=== PATIENT | female | born 1975 | race Two or more races ===

== ENCOUNTER 2016-12-26 16:35 | Emergency (ER) | payer MEDICAID ==
[~2016-12-26] VITALS: Ht 167.6 cm; Wt 72.5 kg
[~2016-12-26 16:35] MED LIST: NOCURR
[2016-12-26 17:06] VITALS: BP 131/65
== END 2016-12-26 20:40 | disposition left against medical advice (07) ==
LOC: EMS 16:36
DX: R07.81 Pleurodynia (principal); J45.909 Unspecified asthma, uncomplicated; Z53.21 Procedure and treatment not carried out due to patient leaving prior to being seen by health care provider

== ENCOUNTER 2018-03-25 00:38 | Emergency (ER) | payer MEDICAID ==
[~2018-03-25] VITALS: Ht 167.6 cm; Wt 72.6 kg
[2018-03-25 00:53] VITALS: BP 141/95
== END 2018-03-25 03:40 | disposition home or self-care (01) ==
LOC: EMS 00:38
DX: S93.401A Sprain of unspecified ligament of right ankle, initial encounter (principal); I10 Essential (primary) hypertension; J45.909 Unspecified asthma, uncomplicated; X50.1XXA Overexertion from prolonged static or awkward postures, initial encounter; Y93.89 Activity, other specified; Y92.89 Other specified places as the place of occurrence of the external cause; Y99.8 Other external cause status
CPT/HCPCS: 29515; 99284

== ENCOUNTER 2018-08-01 12:56 | Emergency (ER) | payer MEDICAID ==
[~2018-08-01] VITALS: Ht 165.1 cm; Wt 88.6 kg
[2018-08-01 13:39] LABS: BASOPHILS % (AUTO) 0.3 % (0.0-2.0); EOSINOPHILS % (AUTO) 2.2 % (1.0-6.0); HEMATOCRIT 37.7 % (36-46); HEMOGLOBIN 12.9 g/dL (12.0-16.0); LYMPHOCYTES % (AUTO) 27.2 % (22.0-44.0); MEAN CORPUSCULAR HGB CONC 34.2 G/dL (31.0-37.0); MEAN CORPUSCULAR VOLUME 88 fL (80-100); MONOCYTES # (AUTO) 0.4 K/uL (0.1-1.0); MONOCYTES % (AUTO) 5.6 % (2.0-9.0); NEUTROPHILS # (AUTO) 4.7 K/uL (1.8-7.7); NEUTROPHILS % (AUTO) 64.7 % (40.0-70.0); PLATELET COUNT (AUTO) 207 K/uL (150-450); RED CELL DISTRIBUTION WIDTH 12.8 % (11.5-14.5)
[2018-08-01 13:45] LABS: ANION GAP 10 mmol/L (8-16); CALCIUM, TOTAL 8.4 mg/dL (8.8-10.5); CARBON DIOXIDE 25 mmol/L (22-29); CHLORIDE 103 mmol/L (98-107); CREATININE 0.59 mg/dL (0.60-1.30); GLOMERULAR FILTR. RATE CALC > 60 mL/min (>60); GLUCOSE,RANDOM 133 mg/dL (70-110); POTASSIUM 3.6 mmol/L (3.5-5.1); SODIUM SERUM 138 mmol/L (136-145); UREA NITROGEN, BLOOD 12 mg/dL (7-18)
[2018-08-01] MEDS ORDERED: IOVERSOL 350 MG/ML 150 ML VIAL ONE (13:52)
[2018-08-01] MEDS ORDERED: SODIUM CHLORIDE 0.9% 100 ML ONE (13:53)
[2018-08-01 13:55] LABS: INR 1.1 (0.9-1.1); PROTHROMBIN TIME 11.4 SEC (9.4-11.6)
[2018-08-01 14:02] LABS: B-TYPE NATRIURETIC PEPTIDE 24 pg/mL (0-100)
[2018-08-01 14:11] LABS: ALANINE AMINOTRANSFERASE 25 U/L (12-78); ALBUMIN 3.7 g/dL (3.4-5.0); ALKALINE PHOSPHATASE 76 U/L (46-116); ASPARTATE AMINOTRANSFERASE 20 U/L (15-37); CREATINE KINASE, TOTAL ONLY 85 U/L (26-192); HCG,QUANTITATIVE < 1 mIU/mL (0-6); TOTAL PROTEIN, SERUM 7.2 g/dL (6.4-8.2)
[2018-08-01 14:42] LABS: APPEARANCE,URINE CLEAR (CLEAR); BILIRUBIN,URINE NEGATIVE (NEGATIVE); GLUCOSE, URINE (UA) NEGATIVE (NEGATIVE); KETONES,URINE NEGATIVE (NEGATIVE); LEUKOCYTE ESTERASE ,URINE NEGATIVE (NEGATIVE); NITRATE,URINE NEGATIVE (NEGATIVE); OCCULT BLOOD,URINE NEGATIVE (NEGATIVE); PH,URINE 5.5 (5.0-8.0); PROTEIN,URINE NEGATIVE (NEGATIVE); UROBILINOGEN,URINE 0.2 mg/dL (<=1.0)
[2018-08-01 18:15] VITALS: BP 134/89
== END 2018-08-01 18:22 | disposition home or self-care (01) ==
LOC: EMS 12:57
DX: R07.81 Pleurodynia (principal); R00.2 Palpitations; R06.02 Shortness of breath; J45.909 Unspecified asthma, uncomplicated; I10 Essential (primary) hypertension; M19.90 Unspecified osteoarthritis, unspecified site; Z85.118 Personal history of other malignant neoplasm of bronchus and lung
CPT/HCPCS: 36415; 71045; 71275; 80053; 81003; 82550; 83880; 84484; 84702; 85025; 85610; 85730; 93005; 99285; J7050; Q9967

== ENCOUNTER 2019-01-09 07:29 | Day surgery (SDC) | payer MEDICAID ==
[~2019-01-09] VITALS: Ht 165.1 cm; Wt 87.5 kg
[2019-01-09] MEDS ORDERED: SODIUM CHLORIDE 0.9% 1,000 ML IV ONE ×2 (07:30→08:02)
[2019-01-09] MEDS ORDERED: BUSP10TA23 PO (07:36)
[2019-01-09] MEDS ORDERED: AMLO2.5T4 PO (07:36)
[2019-01-09] MEDS ORDERED: ALPR0.5T8 PO (07:36)
[2019-01-09] MEDS ORDERED: AZEL1KIT2 PO (07:36)
[2019-01-09] MEDS ORDERED: ACET-66 PO (07:36)
[2019-01-09] MEDS ORDERED: CITA10TA68 PO (07:36)
[2019-01-09] MEDS ORDERED: DILT180C52 PO (07:36)
[2019-01-09] MEDS ORDERED: IPRAHFA IH (07:36)
[2019-01-09] MEDS ORDERED: BACL10TA PO (07:36)
[2019-01-09] MEDS ORDERED: ARIP5TAB8 PO (07:36)
[2019-01-09] MEDS ORDERED: ATOR10TA84 PO (07:36)
[2019-01-09] MEDS ORDERED: ALEN35TA32 PO (07:36)
[2019-01-09 08:15] LABS: BASOPHILS % (AUTO) 0.4 % (0.0-2.0); EOSINOPHILS % (AUTO) 2.1 % (1.0-6.0); HEMATOCRIT 39.1 % (36-46); LYMPHOCYTES # (AUTO) 1.6 K/uL (1.0-4.8); LYMPHOCYTES % (AUTO) 26.4 % (22.0-44.0); MEAN CORPUSCULAR HEMOGLOBIN 29.5 pg (26.0-34.0); MEAN CORPUSCULAR HGB CONC 33.3 G/dL (31.0-37.0); MEAN CORPUSCULAR VOLUME 88 fL (80-100); MONOCYTES # (AUTO) 0.4 K/uL (0.1-1.0); MONOCYTES % (AUTO) 6.3 % (2.0-9.0); NEUTROPHILS # (AUTO) 3.9 K/uL (1.8-7.7); NEUTROPHILS % (AUTO) 64.8 % (40.0-70.0); PLATELET COUNT (AUTO) 216 K/uL (150-450); RED BLOOD CELL COUNT(AUTO) 4.42 MIL/uL (4.00-5.20); RED CELL DISTRIBUTION WIDTH 13.3 % (11.5-14.5)
[2019-01-09 08:26] LABS: PROTHROMBIN TIME 10.9 SEC (9.4-11.6)
[2019-01-09 08:29] LABS: ANION GAP 8 mmol/L (8-16); CALCIUM, TOTAL 8.9 mg/dL (8.8-10.5); CARBON DIOXIDE 27 mmol/L (22-29); CHLORIDE 103 mmol/L (98-107); CREATININE 0.63 mg/dL (0.60-1.30); GLOMERULAR FILTR. RATE CALC > 60 mL/min (>60); GLUCOSE,RANDOM 106 mg/dL (70-110); POTASSIUM 3.5 mmol/L (3.5-5.1); SODIUM SERUM 138 mmol/L (136-145); UREA NITROGEN, BLOOD 18 mg/dL (7-18)
[2019-01-09] MEDS ORDERED: METO-558 PO (08:31)
[2019-01-09] MEDS ORDERED: GABA-531 PO (08:31)
[2019-01-09] MEDS ORDERED: TRAZ-252 PO (08:31)
[2019-01-09] MEDS ORDERED: SUCR1TAB PO (08:31)
[2019-01-09] MEDS ORDERED: BUDE10.2 IH (08:31)
[2019-01-09] MEDS ORDERED: ZOLP10TA7 PO (08:31)
[2019-01-09] MEDS ORDERED: RANI150T7 PO (08:31)
[2019-01-09] MEDS ORDERED: MELO-107 PO (08:31)
[2019-01-09 08:39] LABS: HCG,QUANTITATIVE < 1 mIU/mL (0-6)
[2019-01-09] MEDS ORDERED: SODIUM BICARBONATE 50 MEQ/50 ML VIAL ONE (08:47)
[2019-01-09] MEDS ORDERED: HEPARIN SODIUM 1000 UNITS/NS 1,000 ML ONE (08:47)
[2019-01-09] MEDS ORDERED: IOHEXOL 300 MG/ML 150 ML VIAL ONE (08:47)
[2019-01-09] MEDS ORDERED: LIDOCAINE/PF 1% 30 ML VIAL ONE (08:47)
[2019-01-09 09:06] VITALS: BP 154/95
[2019-01-09] MEDS ORDERED: MIDAZOLAM HCL 2 MG/2 ML VIAL ONE (09:29)
[2019-01-09] MEDS ORDERED: FentaNYL CITRATE-PF 100 MCG/2 ML VIAL ONE (09:29)
[2019-01-09] MEDS ORDERED: HEPARIN SODIUM 2,000 UNITS in HEPARIN SODIUM 1000 UNITS/NS 1,000 ML IARTER ONE (09:32)
[2019-01-09] MEDS ORDERED: FentaNYL CITRATE-PF 100 MCG/2 ML VIAL IVP ONE (09:45)
[2019-01-09] MEDS ORDERED: IOHEXOL 300 MG/ML 150 ML VIAL IARTER ONE (09:45)
[2019-01-09] MEDS ORDERED: MIDAZOLAM HCL 2 MG/2 ML VIAL IVP ONE (09:45)
[2019-01-09] MEDS ORDERED: LIDOCAINE 1% 30 ML/SOD BICARB 8.4% 4 ML SQ ONE (09:45)
[2019-01-09 09:50] VITALS: BP 135/72
== END 2019-01-09 14:15 | disposition home or self-care (01) ==
LOC: CATHLAB 07:29
PROVIDERS: ATTEND Internal Medicine Cardiovascular Disease
DX: R07.9 Chest pain, unspecified (principal); R94.39 Abnormal result of other cardiovascular function study; J44.9 Chronic obstructive pulmonary disease, unspecified; I10 Essential (primary) hypertension; E78.5 Hyperlipidemia, unspecified; Z98.890 Other specified postprocedural states; Z85.118 Personal history of other malignant neoplasm of bronchus and lung; Z79.899 Other long term (current) drug therapy
CPT/HCPCS: 36415; 80048; 84702; 85025; 85610; 85730; 93005; 93458; 99152; C1760; J1644; J2250; J3010; J3490 ×2; J7030; Q9967